=== PATIENT | female | born 1965 | race Caucasian/White ===

== ENCOUNTER 2024-10-14 21:13 | Emergency (ER) | payer BC ==
[2024-10-14] MEDS ORDERED: Acetaminophen 500 MG TAB ONE (22:47)
== END 2024-10-14 23:27 | disposition home or self-care (01) ==
LOC: CSHERS 21:13
DX: S00.83XA Contusion of other part of head, initial encounter (principal); J32.9 Chronic sinusitis, unspecified; W01.0XXA Fall on same level from slipping, tripping and stumbling without subsequent striking against object, initial encounter
CPT/HCPCS: 70486